=== PATIENT | male | born 2000 | race Two or more races ===

== ENCOUNTER 2025-01-28 14:36 | Emergency (ER) | payer MEDICAID, SELFPAY ==
--- NOTE | 2025-01-28 14:41 | EKG_ITS ---
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
--- NOTE | 2025-01-28 14:49 | XR_ITS ---
Examination: AP chest single view Technique: AP portable upright chest single view Exam date and time: January 28, 2025 at 1359 hrs. Comparison June 26, 2024 Indications: Chest pain today. Findings: Normal heart size Mild hyperexpansion. No pneumonia or pulmonary edema Impression: No pneumonia or pulmonary edema
--- NOTE | 2025-01-28 14:50 | PD.EDRME ---
Rapid Medical Screening Exam RME Arrival date/time: 01/28/25 14:36 24-year-old male presents emergency department with complaints of palpitations, shortness of breath, and chest pain patient reports he was given unknown drugs 3 days ago and has been feeling like this for 3 days. I have greeted and performed a focused initial assessment of this patient. Initial appropriate labs ordered at this time. A comprehensive ED assessment and evaluation of the patient and analysis of all test and completion of medical decision making process will be conducted by additional ED provider. Chief Complaint: Shortness of Breath/Dyspnea Time Seen by Provider: 01/28/25 14:48
[2025-01-28 14:52] VITALS: BP 130/90; PULSE 96; RESP 20; TEMP 36.8; O2SAT 100; BMI 26.9
[2025-01-28] MEDS: hydrOXYzine HCL 25 MG TABLET 50 MG PO (14:57)
[2025-01-28 15:49] LABS: Amphetamine/Methamp Scrn,U Negative (Negative); Barbiturate Screen,Urine Negative (Negative); Benzodiazepines Screen,Urine Positive (Negative); Benzoylecgonine Screen, Ur Negative (Negative); Fentanyl Screen,Urine Negative (Negative); Opiate Screen,Urine Negative (Negative); THC Screen,Urine Positive (Negative)
[2025-01-28 15:54] LABS: Basophils % (Auto) 0 % (0-2.5); Eosinophils % (Auto) 0 % (0-10); Hematocrit 42.1 % (41.0-53.0); Hemoglobin 15.2 g/dL (13.5-16.0); Immature Granulocytes % (Auto) 1 % (0-0); Immature Granulocytes Auto 0.04 Thou/mm3 (0.00-0.00); Lymphocytes # (Auto) 2.4 Thou/mm3 (1.0-4.8); Lymphocytes % (Auto) 28 % (10-50); Mean Corpuscular HGB Conc 36.1 g/dl (31.0-37.0); Mean Corpuscular Hemoglobin 28.6 pg (25.0-35.0); Mean Corpuscular Volume 79 fL (80-100); Monocytes # (Auto) 0.9 Thou/mm3 (0.0-0.8); Monocytes % (Auto) 10 % (0-12); Neutrophils # (Auto) 5.4 Thou/mm3 (1.8-7.7); Neutrophils % (Auto) 61 % (37-80); Nucleated Red Blood Cell % 0 /100 WBC (0); Platelet Count 278 Thou/mm3 (140-440); RDW Standard Deviation 34.5 fL (35.1-43.9); Red Blood Count 5.31 Miln/mm3 (4.50-5.90); White Blood Count 8.7 Thou/mm3 (3.8-10.6)
[2025-01-28 16:11] LABS: Prothrombin Time 11.4 Seconds (9.0-12.2)
[2025-01-28 16:12] LABS: B-Type Natriuretic Peptide < 20 pg/mL (0-100)
[2025-01-28 16:14] LABS: Alanine Aminotransferase 14 U/L (10-49); Albumin, Serum 4.5 gm/dL (3.5-5.0); Albumin/Globulin Ratio 1.8 (1.2-2.2); Alkaline Phosphatase 71 U/L (46-116); Anion Gap 16 (7-16); Aspartate Amino Transferase 25 U/L (0-34); BUN/Creatinine Ratio 11 Ratio (12-20); Bilirubin,Total 0.8 mg/dL (0.3-1.2); Blood Urea Nitrogen 10 mg/dL (9-23); Calcium 10.4 mg/dL (8.3-10.6); Calcium (Corrected) 10.4 mg/dL (8.5-10.1); Carbon Dioxide 22.2 mMol/L (20.0-31.0); Chloride 93 mMol/L (98-107); Creatinine (Component) 0.9 mg/dL (0.6-1.3); Estimated Creatinine Clearance 141.8 mL/min (>60); Globulin 2.5 gm/dL (2.3-3.5); Glucose 103 mg/dL (74-106); Lipase 25 U/L (12-53); Magnesium 1.7 mg/dL (1.6-2.6); Osmolality,Calculated 261 (275-295); Potassium 3.2 mMol/L (3.4-5.1); Sodium 131 mMol/L (136-145); Troponin I < 0.002 ng/mL (0.0-0.045); eGFR > 60 See Note
--- NOTE | 2025-01-28 18:08 | PD.EDSOB ---
ED SOB =RME/HPI General Chief Complaint: Shortness of Breath/Dyspnea Stated Complaint: Feeling sob, cp, friend gave something 3 days ago Time Seen by Provider: 01/28/25 14:48 Arrival date/time: 01/28/25 14:36 RME / HPI RME / HPI Narrative: 24-year-old male patient complaining of shortness of breath palpitation jittery, cannot sleep chest pain, been ongoing for the last 3 days. Patient told me that he was given an unknown drug by his friend and since then has been having the symptoms. Patient denies any homicidal or suicidal ideation. Denies any cough denies any fever denies any other complaints. Related Data Previous Rx's ?Medication ?Instructions ?Recorded ibuprofen 800 mg tablet 800 mg PO Q6H PRN pain #14 tabs 06/26/24 hydroxyzine HCl 50 mg tablet 50 mg PO Q8H PRN anxiety #30 tabs 01/28/25 Allergies Allergy/AdvReac Type Severity Reaction Status Date / Time No Known Allergies Allergy Verified 01/28/25 14:40 Review of Systems Review of Systems Narrative Review of Systems: Review of system reviewed and within normal limits except mentioned in HPI ED Exam Narrative Physical exam: VITAL SIGNS: Reviewed. GENERAL APPEARANCE: Alert and interactive, follows commands, no acute distress, anxious HEAD AND FACE: Non-traumatic. ENT: PERRL, pink conjunctivitis, eyelid no trauma, Mucous membrane moist. NECK: Supple, nontender, no nuchal rigidity. CHEST: No tenderness, no crepitus, no paradoxical movement, no retractions. LUNGS: Clear, well ventilated, symmetric, no rales, no wheezing, no ronchi, no stridor, good breath sounds bilaterally. HEART: Regular rate, regular rhythm, no murmur, no gallops. ABDOMEN: Soft, positive bowel sounds, nondistended, no guarding, nontender, no rebound, no masses, RECTAL: Deferred. GENITAL: Deferred. NEUROLOGICAL: Gross motor function intact sensory function intact, Appropriate for age. MUSCULOSKELETAL: low back nontender, full range of motion. EXTREMITIES: Nontender, full range of motion. SKIN: Color pink, dry, no rash, no lacerations, no abrasions, no contusions. LYMPHATICS: Deferred. Course Quality Measures none Orders Category Date Time Status EKG (ED ONLY) *Do not use* NOW Care 01/28/25 14:41 Completed EKG (ED Only) Stat Exams 01/28/25 14:41 Draft XR chest 2V Stat Exams 01/28/25 14:49 Completed B-Type Natriuretic Peptide Stat Lab 01/28/25 15:23 Completed CBC Stat Lab 01/28/25 15:23 Completed Comprehensive Metabolic Panel Stat Lab 01/28/25 15:23 Completed Drug Screen,Urine Stat Lab 01/28/25 15:07 Completed Lipase Stat Lab 01/28/25 15:23 Completed Magnesium Stat Lab 01/28/25 15:23 Completed Prothrombin Time with INR Stat Lab 01/28/25 15:23 Completed Troponin I Stat Lab 01/28/25 15:23 Completed Diazepam [Valium] Med 01/28/25 18:04 Discontinued 5 mg PO X1 ONE hydrOXYzine HCL [Atarax] Med 01/28/25 14:51 Discontinued 50 mg PO X1 ONE Vital Signs Vital signs: Vital Signs Temperature 98.3 F 01/28/25 14:52 Pulse Rate 96 01/28/25 14:52 Respiratory Rate 20 01/28/25 14:52 Blood Pressure 130/90 H 01/28/25 14:52 Pulse Oximetry (%) 100 01/28/25 14:52 Oxygen Delivery Method Room Air 01/28/25 14:52 Shortness of Breath / Dyspnea MDM Narrative MDM Narrative:: 24-year-old male patient complaining of shortness of breath palpitation jittery, cannot sleep chest pain, been ongoing for the last 3 days. Patient told me that he was given an unknown drug by his friend and since then has been having the symptoms. Patient denies any homicidal or suicidal ideation. Denies any cough denies any fever denies any other complaints. Patient's cardiac workup all came back normal patient's chest x-ray also came back unremarkable. Tested positive for benzo and marijuana. EKG showed normal sinus rhythm, ventricular rate of 96 bpm, no ST segment elevation depression noted. Results discussed with the patient. Patient was also given Valium with significant improvement of symptoms. Patient data External records reviewed:: None Clinical information provided by:: patient Social determinants that could affect healthcare access:: none Patient has the following chronic illnesses:: None How is presenting disease/condition affected by chronic disease/condition?: no chronic disease Evaluation data The following diagnostics were reviewed and interpreted by me:: lab results, radiology exam(s) and EKG tracing(s) Lab and/or radiology exams considered but not ordered:: None Interpretation Summary: See results in MDM Medications / Prescriptions Medications or Prescriptions considered but not ordered:: None Medication administrations:: Medication Administration History Discontinued Medications Diazepam (Diazepam 5 Mg Tablet) 5 mg PO X1 ONE Stop: 01/28/25 18:05 Hydroxyzine HCl (Hydroxyzine Hcl 25 Mg Tablet) 50 mg PO X1 ONE Stop: 01/28/25 14:52 Last Admin: 01/28/25 14:57 Dose: 50 mg Documented By: ANDREW Diazepam, and hydroxyzine Consultations Consultation(s) initiated? (list below): No Diagnosis Shortness of Breath Differential Diagnosis: other (Palpitation, dehydration,anxiety) Most likely diagnosis given after review of the tests above:: anxiety Admission Indicated Admission indicated?: not indicated Admission Request Was there a request for admission?: No Disposition Plan Disposition Plan: Discharge Discharge Attestation Discharge Attestation: The patient was given an opportunity to ask questions and understood the discharge instructions. Discharge instructions specifically effects, indications for sooner follow up or return to the emergency department, and the expected course of current diagnosis. Patient condition: Stable Discharge Plan Plan Patient Disposition: HOME (Self Care) Disposition Comment: stable Prescriptions/Referrals Prescriptions/Med Rec: New hydroxyzine HCl 50 mg tablet 50 mg PO Q8H PRN (Reason: anxiety) Qty: 30 0RF No Action ibuprofen 800 mg tablet 800 mg PO Q6H PRN (Reason: pain) Qty: 14 0RF Referrals: No Primary/Family,Physician [Primary Care Provider] - In 1 week Problem List Clinical Impression: Anxiety Patient/Caregiver Discharge Instructions Discharge Activity: activity as tolerated Education Materials: Anxiety Disorders Tx Therapy Additional Instructions: Thank you for the opportunity for serving you today. You are stable for discharged . You are advised to: Follow-up with your PCP in 1 to 2 days Return to ED for worsening of symptoms Increase oral fluids Take medication as prescribed Print Language: Barbadian Stand Alone Forms: Susana Award Info., Patient Portal Info Letter PA/GROCERY CLERK SELLING Supervising Physician PA/MANUEL Supervising Physician: MD Marcelle
[2025-01-28] MEDS: DIAZEPAM 5 MG TABLET PO (18:57)
== END 2025-01-28 19:01 | disposition home or self-care (01) ==
PROVIDERS: Nurse Practitioner Primary Care; Emergency Provider Emergency Medicine
DX: F41.9 Anxiety disorder, unspecified (principal)
CPT/HCPCS: 36415; 71046; 80053; 80307; 83690; 83735; 83880; 84484; 85025; 85610; 93005; 99283; A9270